=== PATIENT | female | born 1940 | race Caucasian/White ===

== ENCOUNTER → 2018-12-31 | Outpatient (CLI) | payer MEDICARE, OTHER ==
[~2018-12-31] MED LIST: CEPH500 PO; HYDACE5 PO; RALO60 PO
[2018-12-31 20:05] LABS: Campylobacter Sp Not Detected (NOT DETECT); Enteroaggregative E. coli-EAEC Not Detected (NOT DETECT); Enterotoxigenic E. coli-ETEC Not Detected (NOT DETECT); Plesiomonas Shigelloides Not Detected (NOT DETECT); Salmonella Sp Not Detected (NOT DETECT); Vibrio Cholerae Not Detected (NOT DETECT); Vibrio Sp Not Detected (NOT DETECT); Yersinia Enterocolitica Not Detected (NOT DETECT)
[2018-12-31 20:06] LABS: Adenovirus F 40/41 Not Detected (NOT DETECT); Astrovirus Not Detected (NOT DETECT); Cryptosporidium Not Detected (NOT DETECT); Cyclospora Cayetanensis Not Detected (NOT DETECT); E. Coli O157 Not Detected (NOT DETECT); Entamoeba Histolytica Not Detected (NOT DETECT); Enteropathogenic E. coli-EPEC Not Detected (NOT DETECT); Giardia Lamblia Not Detected (NOT DETECT); Norovirus GI/GII Not Detected (NOT DETECT); Rotavirus A Not Detected (NOT DETECT); Sapovirus Not Detected (NOT DETECT); Shiga Toxin-prod E. coli-STEC Not Detected (NOT DETECT); Shigella/Enteroin E. coli-EIEC Not Detected (NOT DETECT)
== END | disposition home or self-care (01) ==
LOC: LAB SHORT 17:30 → LAB 17:30
PROVIDERS: Emergency Medicine
DX: R19.7 Diarrhea, unspecified (principal)
CPT/HCPCS: 0097U

== ENCOUNTER 2019-07-21 19:30 | Emergency (ER) | payer MEDICARE, OTHER ==
[~2019-07-21] VITALS: Ht 154.9 cm; Wt 68.0 kg
[2019-07-21 19:50] LABS: Hematocrit 39.1 % (33.0-51.0); Hemoglobin 12.9 g/dL (11.5-16.0); Mean Corpuscular HGB 31.5 pg (26.0-34.0); Mean Corpuscular Volume 95 fL (80-100); Mean Platelet Volume 9.8 fL (9.1-12.4); Platelet Count 252 K/mm3 (150-400); RDW Coefficient Variation 12.2 % (11.7-14.2); RDW Standard Deviation 42.4 fL (35.1-46.3); White Blood Cell Count 6.86 K/mm3 (4.00-11.30)
[2019-07-21 19:51] LABS: BASOPHILS ABSOLUTE AUTO 0.07 K/mm3 (0.00-0.23); BASOPHILS PERCENT AUTO 1 % (0-2); EOSINOPHILS ABSOLUTE AUTO 0.41 K/mm3 (0.00-0.68); EOSINOPHILS PERCENT AUTO 6 % (0-6); IMMATURE GRAN ABSOLUTE AUTO 0.02 K/mm3 (0.00-0.10); IMMATURE GRAN PERCENT AUTO 0 % (0-1); LYMPHOCYTES ABSOLUTE AUTO 2.47 K/mm3 (0.84-5.20); LYMPHOCYTES PERCENT AUTO 36 % (21-46); MONOCYTES ABSOLUTE AUTO 0.72 K/mm3 (0.16-1.47); MONOCYTES PERCENT AUTO 11 % (4-13); NEUTROPHILS ABSOLUTE AUTO 3.17 K/mm3 (1.96-9.15); NEUTROPHILS PERCENT AUTO 46 % (41-73)
[2019-07-21] MEDS ORDERED: LORCET PLUS 7.1 EACH PO (20:06)
[2019-07-21 20:07] LABS: International Normalized Ratio 1.17; Prothrombin Time Results 12.4 Sec (9.7-11.5)
[2019-07-21] MEDS ORDERED: CYCL10 PO (20:07)
[2019-07-21] MEDS ORDERED: FUROSEMIDE20 MG PO (20:07)
[2019-07-21] MEDS ORDERED: Cymbalta20 MG PO (20:08)
[2019-07-21 20:09] LABS: Alanine Aminotransfer (ALT/SGP 36 U/L (12-78); Albumin/Globulin Ratio 1.1 (0.8-1.8); Alk Phos 53 U/L (50-136); Anion Gap 6 mmol/L (6-16); Aspartate Aminotrans (AST/SGOT 36 U/L (12-37); Bilirubin, Total 0.3 mg/dL (0.1-1.0); Blood Urea Nitrogen 10 mg/dL (8-24); Bun/Creatinine Ratio 15.8 (12.0-20.0); CO2, Blood 25 mmol/L (21-32); Calcium, Blood 8.6 mg/dL (8.5-10.1); Chloride, Blood 102 mmol/L (98-108); Creatinine, Blood 0.63 mg/dL (0.40-1.00); Globulin, Blood 3.5 g/dL (2.2-4.0); Glomerular Filtration Rate >60 (60-); Glucose, Blood 114 mg/dL (70-99); Potassium, Blood 3.7 mmol/L (3.5-5.5); Sodium, Blood 133 mmol/L (136-145); Total Protein, Blood 7.5 g/dL (6.4-8.2)
[2019-07-21] MEDS ORDERED: Advair Hfa 115-12 GM INH (20:09)
[2019-07-21] MEDS ORDERED: LOSA50 PO (20:10)
[2019-07-21] MEDS ORDERED: ESCITALOPRAM OXA5 MG PO (20:11)
[2019-07-21] MEDS ORDERED: ATENOLOL25 MG PO (20:18)
[2019-07-21] MEDS ORDERED: SYNTHROID50 MC1 PO (20:18)
[2019-07-21] MEDS ORDERED: LIVALO2 MG PO (20:19)
[2019-07-21] MEDS ORDERED: RALOXIFENE HCL60 MG PO (20:19)
[2019-07-21] MEDS ORDERED: Paxil20 MG PO (20:20)
[2019-07-21] MEDS ORDERED: AMLODIPINE BESYL5 MG PO (20:21)
== END 2019-07-21 21:10 | disposition short-term general hospital (02) ==
LOC: ER 19:30
PROVIDERS: Emergency Medicine
DX: I61.9 Nontraumatic intracerebral hemorrhage, unspecified (principal); I10 Essential (primary) hypertension; E78.5 Hyperlipidemia, unspecified; Z88.2 Allergy status to sulfonamides; Z79.899 Other long term (current) drug therapy
CPT/HCPCS: 70450; 80053; 82947; 85025; 85610; 85730; 93005; 93010; 96365; 96368; 99285-25; J7050

== ENCOUNTER → 2019-09-19 | Outpatient (CLI) | payer MEDICARE, OTHER ==
[~2019-09-19] MED LIST changes: +AMLODIPINE BESYL5 MG PO; +ATENOLOL25 MG PO; +Advair Hfa 115-12 GM INH; +CYCL10 PO; +Cymbalta20 MG PO; +ESCITALOPRAM OXA5 MG PO; +FUROSEMIDE20 MG PO; +LIVALO2 MG PO; +LORCET PLUS 7.1 EACH PO; +LOSA50 PO; +Paxil20 MG PO; +RALOXIFENE HCL60 MG PO; +SYNTHROID50 MC1 PO
== END | disposition home or self-care (01) ==
LOC: LAB SHORT 16:32 → LAB 16:32
DX: R30.0 Dysuria (principal)
CPT/HCPCS: 87077; 87086; 87186

== ENCOUNTER → 2019-12-24 | Outpatient (CLI) | payer MEDICARE, OTHER ==
[2019-12-24 15:10] LABS: Osmolality, Urine 272 mos/kg (15-1400)
[2019-12-24 15:27] LABS: Sodium, Urine, Random 29 mmol/L (20-110)
== END | disposition home or self-care (01) ==
LOC: LAB 10:00 → LAB SHORT 10:00 → LAB FUT 12-22 08:40
PROVIDERS: Internal Medicine
DX: E87.1 Hypo-osmolality and hyponatremia (principal); E03.9 Hypothyroidism, unspecified; I10 Essential (primary) hypertension
CPT/HCPCS: 83935; 84300

== ENCOUNTER 2021-10-17 10:04 | Emergency (ER) | payer OTHER, MEDICARE ==
[~2021-10-17] VITALS: Ht 157.5 cm; Wt 56.2 kg
[2021-10-17] MEDS ORDERED: Norco 5-325 Ta1 EACH PO (11:20)
[2021-10-19] MEDS ORDERED: METO25ER PO (14:14)
== END 2021-10-17 11:36 | disposition home or self-care (01) ==
LOC: ER 10:04
DX: S52.531A Colles' fracture of right radius, initial encounter for closed fracture (principal); I10 Essential (primary) hypertension; W01.0XXA Fall on same level from slipping, tripping and stumbling without subsequent striking against object, initial encounter; Y93.K1 Activity, walking an animal; Z88.2 Allergy status to sulfonamides; Z79.899 Other long term (current) drug therapy; Z87.891 Personal history of nicotine dependence
CPT/HCPCS: 73110; A9270

== ENCOUNTER 2021-10-17 18:51 | Emergency (ER) | payer MEDICARE, OTHER ==
[~2021-10-17] VITALS: Ht 157.5 cm; Wt 56.2 kg
[~2021-10-17 18:51] MED LIST changes: +Norco 5-325 Ta1 EACH PO
[2021-10-19] MEDS ORDERED: METO25ER PO (14:14)
== END 2021-10-17 20:58 | disposition home or self-care (01) ==
LOC: ER 18:51
DX: R55 Syncope and collapse (principal); S42.301A Unspecified fracture of shaft of humerus, right arm, initial encounter for closed fracture; I10 Essential (primary) hypertension; E78.5 Hyperlipidemia, unspecified; E03.9 Hypothyroidism, unspecified; Z86.73 Personal history of transient ischemic attack (TIA), and cerebral infarction without residual deficits; Z88.2 Allergy status to sulfonamides; Z79.899 Other long term (current) drug therapy; X58.XXXA Exposure to other specified factors, initial encounter
CPT/HCPCS: 99283

== ENCOUNTER 2021-10-24 11:03 | Day surgery (SDC) | payer OTHER, MEDICARE ==
[~2021-10-24] VITALS: Ht 152.4 cm; Wt 55.0 kg
[~2021-10-24 11:03] MED LIST changes: +METO25ER PO
--- NOTE | 2021-10-24 11:56 | NUR ---
Ambulatory in Day Surgery. History, Chart, Medications and Allergies reviewed before start of procedure. Patient States Post-Procedure ride home has been arranged WITH NEIGHBOR MAYRA.
--- NOTE | 2021-10-24 14:55 | NUR ---
PT HERE AT 1443 WARE[address]SE SORTERROMINA GRANT STATES PT BECAME MORE CONFUSED A DOSE OF FENTANYL PT IS NOW IN STEP AND IS UNSURE OF WHAT WAS DONE BUT IS TAKING PO FLUIDS WELL, PT CANNOT DESCRIBE PAIN SCALE AT THIS TIME BUT APPEARS COMFOTABLE REPORT TO Kristin STOUT RN
--- NOTE | 2021-10-24 14:58 | NUR ---
TOOK OVER PATIENT CARE AFTER REPORT WAS RECEIVED.
--- NOTE | 2021-10-24 16:38 | NUR ---
THE PATIENT WAS DISCHARGED HOME WITH HER NEIGHBOR, AFTER DISCHARGE INSTRUCTIONS WERE GIVEN TO THE PATIENT. Patient up to Ambulate independently. Gait steady. Romelia Paws warming gown applied. Discharge instructions reviewed with patient. Patient verbalizes understanding. Copy given to patient to take home. Patient States Post-Procedure ride home has been arranged. Discharged via wheelchair to private car for ride home.
== END 2021-10-24 16:41 | disposition home or self-care (01) ==
LOC: ORSCMMR 11:03
PROVIDERS: Orthopaedic Surgery
PROC: 0PSH04Z Reposition Right Radius with Internal Fixation Device, Open Approach (ICD-10-PCS; principal; 2021-10-24 12:30)
DX: S52.501A Unspecified fracture of the lower end of right radius, initial encounter for closed fracture (principal); W01.0XXA Fall on same level from slipping, tripping and stumbling without subsequent striking against object, initial encounter; I10 Essential (primary) hypertension; E03.9 Hypothyroidism, unspecified; F41.9 Anxiety disorder, unspecified; Z86.73 Personal history of transient ischemic attack (TIA), and cerebral infarction without residual deficits; I25.10 Atherosclerotic heart disease of native coronary artery without angina pectoris; I63.9 Cerebral infarction, unspecified; Z87.891 Personal history of nicotine dependence; Z79.899 Other long term (current) drug therapy
CPT/HCPCS: A9270; C1713; J0690; J1100; J2250; J2405; J2704; J3010; J7120

== ENCOUNTER → 2023-02-05 | Outpatient (CLI) | payer MEDICARE, OTHER | LOC: LAB 09:06 → LAB SHORT 09:06 | DX: R30.0 Dysuria (principal) | CPT/HCPCS: 87086 ==

== ENCOUNTER → 2023-11-10 | Outpatient (CLI) | payer MEDICARE, OTHER | LOC: LAB 13:19 → LAB SHORT 13:19 | DX: R30.0 Dysuria (principal); R35.0 Frequency of micturition | CPT/HCPCS: 87086 ==

== ENCOUNTER 2024-08-03 16:36 | Inpatient (IN) | payer MEDICARE, OTHER ==
[~2024-08-03] VITALS: Ht 157.5 cm; Wt 49.1 kg
[~2024-08-03 16:36] MED LIST changes: -METO25ER PO; +METO50ER PO
[2024-08-03] MEDS ORDERED: Diltiazem HCl 5 MG / ML 5ML Vial IV ONE ×3 (16:55→19:15)
[2024-08-03 17:13] LABS: BASOPHILS ABSOLUTE AUTO 0.06 K/mm3 (0.00-0.23); BASOPHILS PERCENT AUTO 1 % (0-2); EOSINOPHILS ABSOLUTE AUTO 0.29 K/mm3 (0.00-0.68); EOSINOPHILS PERCENT AUTO 3 % (0-6); Hematocrit 33.5 % (33.0-51.0); Hemoglobin 11.2 g/dL (11.5-16.0); IMMATURE GRAN ABSOLUTE AUTO 0.02 K/mm3 (0.00-0.10); IMMATURE GRAN PERCENT AUTO 0 % (0-1); LYMPHOCYTES ABSOLUTE AUTO 1.39 K/mm3 (0.84-5.20); LYMPHOCYTES PERCENT AUTO 16 % (21-46); MONOCYTES PERCENT AUTO 9 % (4-13); Mean Corpuscular HGB 31.8 pg (26.0-34.0); Mean Corpuscular HGB Conc 33.4 g/dL (31.5-36.5); Mean Corpuscular Volume 95 fL (80-100); Mean Platelet Volume 9.9 fL (9.1-12.4); NEUTROPHILS ABSOLUTE AUTO 6.27 K/mm3 (1.96-9.15); NEUTROPHILS PERCENT AUTO 71 % (41-73); Platelet Count 300 K/mm3 (150-400); RDW Coefficient Variation 12.5 % (11.7-14.2); RDW Standard Deviation 43.7 fL (35.1-46.3); Red Blood Cell Count 3.52 M/mm3 (3.80-5.20); White Blood Cell Count 8.83 K/mm3 (4.00-11.30)
[2024-08-03 17:27] LABS: Albumin, Blood 3.8 g/dL (3.4-5.0); Albumin/Globulin Ratio 1.1 (0.8-1.8); Bilirubin, Total 0.5 mg/dL (0.1-1.0); Bun/Creatinine Ratio 39.8 (12.0-20.0); Calcium, Blood 9.2 mg/dL (8.5-10.1); Creatinine, Blood 0.5 mg/dL (0.40-1.00); Globulin, Blood 3.5 g/dL (2.2-4.0); Potassium, Blood 4.1 mmol/L (3.5-5.5); Total Protein, Blood 7.3 g/dL (6.4-8.2)
[2024-08-03] MEDS ORDERED: dilTIAZem HCL 125 MG in Dextrose 5% 100 ML IV SCH (19:15)
[2024-08-03 19:41] LABS: Source, Urine Clean Catch
[2024-08-03 19:45] LABS: Appearance, Urine Hazy (Clear); Bilirubin, Urine Neg (Neg); Blood, Urine 1+ (Neg); Color, Urine Yellow (P-Yellow); Glucose Qualitative, Urine Neg (Neg); Ketones, Urine 1+ (Neg); Leukocyte Esterase, Urine 3+ (Neg); Nitrite, Urine Pos (Neg); Protein, Urine 3+ (Neg); Specific Gravity, Urine 1.015 (1.003-1.022); Urobilinogen, Urine NORM (Normal)
[2024-08-03] MEDS ORDERED: OxyCODONE HCL 5 MG TAB PO PRN (19:50)
[2024-08-03] MEDS ORDERED: Acetaminophen 325 MG TABLET PO PRN (19:50)
[2024-08-03] MEDS ORDERED: Ondansetron HCl 2 MG / ML 2ML Vial IV PRN (19:50)
[2024-08-03] MEDS ORDERED: Sennosides 8.6 MG Tab PO PRN (19:50)
[2024-08-03 20:00] LABS: Bacteria Many /hpf; Squamous Epithelial Cells Mod /hpf (Few); White Blood Cells, Urine 25-50 /hpf (0-5)
[2024-08-03 20:01] LABS: Hyaline Casts 0-2 /lpf (0-2)
[2024-08-03 20:43] LABS: CHOL/HDL RATIO 1.9; Cholesterol 158 mg/dL (50-200); HDL Cholesterol 84 mg/dL (>39); LDL/HDL RATIO 0.7; Low Density Lipoprotein Chol 56 mg/dL (0-110); Triglycerides 91 mg/dL (30-160); Very Low Density Lipoprot Chol 18 mg/dL (6-32)
[2024-08-03 21:15] VITALS: BP 93/71
[2024-08-03 22:45] VITALS: BP 138/87
[2024-08-03 22:57] LABS: Anti-Xa UFH, PHA Monitoring <0.10 IU/mL; International Normalized Ratio 1.12; Prothrombin Time Results 11.9 Sec (9.7-11.5)
[2024-08-03 23:00] VITALS: BP 135/72
[2024-08-03] MEDS ORDERED: Dose Adjust by Pharmacy XX STA (23:04)
[2024-08-03] MEDS ORDERED: Heparin Sodium,Porcine/0.5 NS 500 ML IV SCH (23:05)
[2024-08-03] MEDS ORDERED: Heparin Sodium 5000 Units/ML 1ML MDV IV ONE (23:05)
[2024-08-03 23:15] VITALS: BP 115/77
[2024-08-03 23:30] VITALS: BP 130/79
[2024-08-04] MEDS ORDERED: Insulin Regular 100 UNIT/ML 10ML Vial SC SCH
[2024-08-04 04:42] VITALS: BP 117/64
[2024-08-04 06:13] LABS: BASOPHILS ABSOLUTE AUTO 0.06 K/mm3 (0.00-0.23); BASOPHILS PERCENT AUTO 1 % (0-2); EOSINOPHILS ABSOLUTE AUTO 0.32 K/mm3 (0.00-0.68); EOSINOPHILS PERCENT AUTO 4 % (0-6); Hematocrit 32.7 % (33.0-51.0); IMMATURE GRAN ABSOLUTE AUTO 0.03 K/mm3 (0.00-0.10); IMMATURE GRAN PERCENT AUTO 0 % (0-1); LYMPHOCYTES ABSOLUTE AUTO 1.42 K/mm3 (0.84-5.20); LYMPHOCYTES PERCENT AUTO 16 % (21-46); MONOCYTES ABSOLUTE AUTO 0.83 K/mm3 (0.16-1.47); MONOCYTES PERCENT AUTO 10 % (4-13); Mean Corpuscular HGB Conc 33.6 g/dL (31.5-36.5); Mean Corpuscular Volume 95 fL (80-100); Mean Platelet Volume 10.1 fL (9.1-12.4); NEUTROPHILS PERCENT AUTO 69 % (41-73); Platelet Count 304 K/mm3 (150-400); RDW Coefficient Variation 12.4 % (11.7-14.2); RDW Standard Deviation 43.3 fL (35.1-46.3); Red Blood Cell Count 3.44 M/mm3 (3.80-5.20); White Blood Cell Count 8.66 K/mm3 (4.00-11.30)
[2024-08-04] MEDS ORDERED: Clarify Drug Order XX ONE (06:40)
[2024-08-04 06:49] LABS: Albumin, Blood 3.3 g/dL (3.4-5.0); Bilirubin, Total 0.6 mg/dL (0.1-1.0); Bun/Creatinine Ratio 28.1 (12.0-20.0); Calcium, Blood 8.6 mg/dL (8.5-10.1); Creatinine, Blood 0.46 mg/dL (0.40-1.00); Globulin, Blood 3.4 g/dL (2.2-4.0); Potassium, Blood 3.9 mmol/L (3.5-5.5); Total Protein, Blood 6.7 g/dL (6.4-8.2)
--- NOTE | 2024-08-04 07:23 | NUR ---
PT MONITORED DURING THE SHIFT.CONTINUES ON DILTAZEM DRIP,TITRATED PER PROTOCOL.INFUSING AT 5MG/KG/HR.AFIB ON THE MONITOR,RATE CONTROLLED ,HR >110.ON HEPARIN DRIP AT 15.6ML/HR.PT NOT ABLE TO URINATE ON HER OWN,TRANSFERRED TO BEDSIDE COMMODE BUT HAD <30ML OF URINE.STRAIGHT CATHED PER PROTOCOL FOR BLADDER SCAN VOLUME OF 561ML.PT ALERT AND AWAKE THIS MORNING.DENIES PAIN,DENIES NEEDS.CALL LIGHT AND PT'S ITEMS WITHIN REACH.REPORT GIVEN TO DAYSHIFT NURSE FOR CONTINUITY OF CARE.
[2024-08-04 07:49] VITALS: BP 129/60
[2024-08-04] MEDS ORDERED: Metoprolol Succinate 25 MG TABCR PO SCH ×2 (09:07→21:00)
[2024-08-04 11:48] VITALS: BP 110/69
[2024-08-04] MEDS ORDERED: Enoxaparin 60 MG/0.6 ML SYR SC SCH (12:00)
[2024-08-04 15:41] VITALS: BP 109/68
--- NOTE | 2024-08-04 17:05 | NUR ---
PT A&Ox4 ON RA. SHE WAS ON HEP GTT AND DILT GTT THIS MORNING WHEN I ASSUMED CARE, SHE IS NOW OFF BOTH GTTS. SHE HAS AMBULATED TO THE RESTROOM x1 ASSIST. SHE IS ON A REGULAR DIET. SHE HAD AN ECHO AND A SHOULDER X-RAY DONE TODAY WELL.
--- NOTE | 2024-08-04 18:35 | NUR ---
ATTEMPTED TO CALL DR, PT HR >135
[2024-08-04 19:05] VITALS: BP 123/78
[2024-08-04 20:14] VITALS: BP 106/77
[2024-08-05] VITALS (7 sets, daily range): BP systolic 95–148; BP diastolic 58–92
[2024-08-05 04:45] LABS: Albumin, Blood 3.1 g/dL (3.4-5.0); Albumin/Globulin Ratio 0.9 (0.8-1.8); Bilirubin, Total 0.4 mg/dL (0.1-1.0); Bun/Creatinine Ratio 20.3 (12.0-20.0); Calcium, Blood 8.6 mg/dL (8.5-10.1); Creatinine, Blood 0.59 mg/dL (0.40-1.00); Globulin, Blood 3.6 g/dL (2.2-4.0); Potassium, Blood 3.9 mmol/L (3.5-5.5); Total Protein, Blood 6.7 g/dL (6.4-8.2)
--- NOTE | 2024-08-05 05:27 | NUR ---
SHIFT SUMMARY PT IS A&O X4, CONFUSED AT TIMES/NOT USING CALL LIGHT FOR ASSISTANCE-GETTING OUT OF BED/BED ALARM ACTIVE, OBEYS COMMANDS, PT MOVING ALL EXTREMITIES WITH PURPOSE, ABLE TO MAKE NEEDS KNOWN, HOLDING APPROPRIATE CONVERSATION, PT IS 1 PERSON ASSIST TO BRP WITH FWW. CONTINUOUS SPO2, SPO2 GREATER 90% ON RA, NO SIGNS OF RESPIRATORY DISTRESS NOTED, PT STARTED TO HAVE APNIC EPISODES WHILE SLEEPING STARTING @ APPROX 0450 DROPPING TO 70-60% BUT RECOVERING ON HER OWN QUICKLY. CONTINUOUS TELE MONITORING, AFIB RHYTHM 100-110 S/OCCATIOANLLY TOUCHING 120-130 S WITH ACTIVITY BUT NOT SUSTAINING/ CONVERTED TO SINUS RHYTHM 80 S @ APPROX 0213 05/07, BP STABLE WITH MAP GREATER THAN 65, PT DENIES CHEST P/P T/O THIS SHIFT, PULSES PRESENT T/O, CAP REFILL WNL. BOWEL TONES PRESENT IN ALL 4Q, PT DENIES FEELINGS OF NAUSEA OR CONSTIPATION. PT STATES SHE FEELS LIKE SHE HAS TO VOID FREQUENTLY/ SMALL AMOUNT OF OUTPUT EACH TIME AND SMALL ABOUT OF URINARY INCONTINUMENTS. BED LOWEST POSITION, CALL LIGHT IN REACH, AWAITING TO GIVE REPORT TO ONCOMING RN.
[2024-08-05] MEDS ORDERED: Levothyroxine Sodium 0.075 MG Tab PO SCH (06:00)
[2024-08-05] MEDS ORDERED: Metoprolol Succinate 50 MG TABCR PO SCH (09:00)
[2024-08-05] MEDS ORDERED: Apixaban 5 MG Tab PO SCH (09:00)
--- NOTE | 2024-08-05 16:52 | NUR ---
PT A&Ox4 BUT FORGETFUL. SHE IS ABLE TO MAKE HER NEEDS KNOWN. TODAY SHE HAS HAD MOMENTS OF AGITATION. SHE IS ON RA AND IS x1 ASSIST W/FWW. BED/CHAIR ALARM ON D/T HER BEING A HIGH FALL RISK AND SHE CONTINUES TO SET IT OFF AFTER BEING REMINDED TO CALL FOR HELP. SHE IS CURRENTLY SITTING UP IN CHAIR WATCHING TV. NO NEEDS NOTED @ THIS TIME.
[2024-08-05] MEDS ORDERED: QUEtiapine Fumarate 25 MG Tab PO ONE (19:45)
[2024-08-06 00:20] VITALS: BP 158/76
[2024-08-06 03:59] VITALS: BP 156/92
--- NOTE | 2024-08-06 04:44 | NUR ---
SHIFT SUMMARY. SHIFT HAS BEEN UNREMARKABLE. PT HAS BEEN ABLE TO REST COMFORTABLY THROUGHOUT MOST OF SHIFT. ABLE TO ANSWER ORIENTATION QUESTIONS APPROPRIATELY AT SHIFT ONSET ALTHOUGH MENTATION HAS FLUCTUATED OVER THE NIGHT. AT TIMES IMPULSIVE, BED ALARM ACTIVE FOR SAFETY. CONTINUES TO RUN SINUS ON TELE. DENIES PAIN. VITALS STABLE. SPOKE WITH HOSPITALIST CHARAN EARLY IN SHIFT TO REQUEST SLEEP AID PT WAS UNABLE TO REST THROUGHOUT PREVIOUS NOC SHIFT. PT HAS BEEN ABLE TO REST COMFORTABLY THROUGHOUT SHIFT AFTER RECEIVING 25 MG SEROQUEL PO OT. SHIFT OTHERWISE UNREMARKABLE. BED LOCKED IN LOWEST POSITION. CALL LIGHT LEFT WITHIN REACH. CONTINUING TO MONITOR.
[2024-08-06 07:57] VITALS: BP 154/81
[2024-08-06] MEDS ORDERED: Losartan Potassium 50 MG Tab PO SCH (09:00)
[2024-08-06 11:20] VITALS: BP 134/60
--- NOTE | 2024-08-06 14:40 | NUR ---
TRANSFER NOTE CALLED REPORT TO ROMINA RAMIREZ AND THEN TRANSFERRED PT VIA WC TO [id number] WITH HER PERSONAL BELONGINGS. PT A&Ox4 AND ABLE TO MAKE NEEDS KNOWN. SHE IS ON RA AND IS A 1 PERSON ASSIST W/FWW.
--- NOTE | 2024-08-06 14:45 | NUR ---
PT TRANSFERED FROM [facility].
[2024-08-06 15:24] VITALS: BP 122/75
--- NOTE | 2024-08-06 17:45 | NUR ---
SHIFT SUMMARY PT IS A/OX3-4, FORGETFUL AT TIMES. PT IS ON RA, SATS >95%. 1 PERSON ASSIST WITH FWW. PT IS CURRENTLY SITTING UP IN THE CHAIR WITH THE CALL LIGHT IN REACH.
[2024-08-06 19:22] VITALS: BP 117/54
[2024-08-07 02:17] VITALS: BP 147/78
--- NOTE | 2024-08-07 05:11 | NUR ---
SHIFT SUMMARY NOC PT A/O X 3-4. VENETIE IRA, AND FORGETFUL AT TIMES. VSS. NO ACUTE CHANGES TO REPORT. AT BEDTIME PT REQUESTED TYLENOL FOR HEADACHE AND MEDICATED PER EMAR. PT EXPECTED TO DISCHARGE TODAY WITH HOME HEALTH. PT CURRENTLY RESTING WITH BED IN LOWEST POSITION, AND CALL LIGHT WITHIN REACH.
[2024-08-07 07:56] VITALS: BP 128/87
[2024-08-07 12:33] VITALS: BP 113/65
--- NOTE | 2024-08-07 14:04 | NUR ---
1355- THIS RN NOTIFIED MD PETERSEN THAT PT HAD COVERTED INTO AFIB AT 1258 IN THE 120'S. PT SINCE HAS INCREASED IN HR UP TO THE 150'S IN THE PAST 10-15 MINUTES. RN ASKED IF MD WANTED 5MG METOPROLOL IV PUSH NOW. MD SAID HE WILL PUT IN ANY ORDERS. CAME TO RN AND LOOKED AT TELEMETRY.
[2024-08-07] MEDS ORDERED: Metoprolol Tartrate 1 MG/ML 5 ML VIAL IV STA (14:10)
--- NOTE | 2024-08-07 16:52 | NUR ---
1649- THIS RN NOTIFIED MD PETERSEN THAT PT'S HR WAS ELEVATED AGAIN UP TO 140-150'S. SAID HE WILL PUT IN CARDIZEM 10MG IV PUSH NOW.
[2024-08-07 16:58] VITALS: BP 116/93
[2024-08-07] MEDS ORDERED: Diltiazem HCl 5 MG / ML 5ML Vial IV ONE (17:00)
--- NOTE | 2024-08-07 17:55 | NUR ---
SUMMARY- AAOX4. FORGETFUL. X1 5MG IV METOPROLOL GIVEN THIS SHIFT. CONTROLLED HR FOR A SHORT AMOUNT OF TIME. X1 10MG CARDIZEM IV PUSH GIVEN TONIGHT WHEN PT'S HR WAS 150'S. PT'S HR WAS DECREASED TO 100'S POST PUSH. PT HAS BEEN ASYMPTOMATIC THROUGHOUT THIS SHIFT. X1 TO THE BATHROOM WITH WALKER/GAIT BELT. PT IS ON RA. WHEN THIS RN ASSUMED CARE FOR PT THIS AM, PT WAS NOT ON TELEMETRY. RN WAS GIVEN REPORT THAT PT WAS TRANSFERRED FROM PCU WITH NO TELE ORDER. MD PETERSEN WAS CONTACTED AT 1045 AND ASKED IF HE WANTED PT ON TELE. TELE ORDER WAS PLACED. PT WENT ON TELE AT 1110. PT WAS IN NSR AT 73. PT CONVERTED TO AFIB AT 1258. AFIB RVR AT 1400. NO OTHER ACUTE EVENTS THIS SHIFT. PT HAD MILD NECK PAIN THAT WAS RELIEVED BY TYLENOL.
[2024-08-07 20:09] VITALS: BP 112/78
[2024-08-07] MEDS ORDERED: Metoprolol Succinate 50 MG TABCR PO SCH (21:00)
--- NOTE | 2024-08-07 23:28 | NUR ---
THIS NURSE NOTITFIED BY SUPERINTENDENT INSTITUTION THAT PT CONVERTED TO NSR 60'S. ELEVATED BPOF 147/115 AT MIDNIGHT VS. RECHECK AT 0100: 147/78. ASYMPTOMATIC. ATTEMPTED X3 TO CALL TEST CASE DEVELOPER RESIDENT, UNABLE TO REACH. CHARGE NURSE NOTIFIED. CONTIUED MONITORING / ROUNDING IN PLACE.
[2024-08-08 00:26] VITALS: BP 144/115
[2024-08-08 01:00] VITALS: BP 147/78
--- NOTE | 2024-08-08 04:38 | NUR ---
AQUATIC HABITAT BIOLOGIST SUMMARY: PT ADMITTED FOR NEW ONSET AFIB RVR. A&O X4, FORGETFUL. SEE PREVIOUS NURSING NOTE REGARDING ELEVATED BP; ASYMPTOMATIC. PT CONVERTED FROM AFIB TO NSR AT APPROX 2323. MEDICATED X1 AT BEGINNING OF SHIFT FOR HEADACHE PER EMAR ORDERS; EFFECTIVE. BED IN LOWEST POSITION. BED ALARM IN PLACE. CALL LIGHT IN REACH. PT INDEPENDENT WITH BED MOBILITY. CARES ONGOING ORDERED. PT REC SNF, PT WANTING HHS UPON D/C.
[2024-08-08 05:34] VITALS: BP 146/84
[2024-08-08 07:47] VITALS: BP 142/67
[2024-08-08] MEDS ORDERED: ELIQUIS2.5 MG PO (11:59)
--- NOTE | 2024-08-08 13:43 | NUR ---
DISCHARGE SUMMARY PATIENT DISCHARGED HOME THIS SHIFT WITH HOME HEALTH TO FOLLOW, FRIEND KALYANI TO DRIVE. IV'S REMOVED WITHOUT COMPLICATION. DISCHARGE PACKET GIVEN AND REVIEWED, QUESTIONS ANSWERED, AND CLARIFICATIONS HAND WRITTEN IN FOR MED INSTRUCTIONS. VERBALIZED UNDERSTANDING.
== END 2024-08-08 12:50 | disposition home health service (06) | DRG 309 ==
LOC: ER 16:36 → ERHOLD 16:37 → PCU 16:37 → MEDS 08-06 15:02
PROVIDERS: Emergency Medicine; Student in an Organized Health Care Education/Training Program; ADMIT Family Medicine
DX: I48.91 Unspecified atrial fibrillation (principal); E87.1 Hypo-osmolality and hyponatremia; I10 Essential (primary) hypertension; E03.9 Hypothyroidism, unspecified; R73.03 Prediabetes; Z66 Do not resuscitate; Z88.1 Allergy status to other antibiotic agents; Z79.899 Other long term (current) drug therapy; Z79.890 Hormone replacement therapy; Z87.891 Personal history of nicotine dependence; Z88.2 Allergy status to sulfonamides
CPT/HCPCS: 36415; 51701; 71045; 73030; 80053; 80061; 81001; 82947; 83036; 83735; 83880; 84443; 84484; 85025; 85379; 85520; 85610; 87086; 93005; 93010; 93306; 96365; 96366; 96376; 97110; 97110-CQ; 97112; 97116; 97116-CQ; 97161; 97165; 97530; 97535; 99285-25; A9270; G0378; J1644; J1650

== ENCOUNTER 2024-09-30 07:57 | Inpatient (IN) | payer MEDICARE, OTHER ==
[~2024-09-30] VITALS: Ht 190.5 cm; Wt 55.1 kg
[~2024-09-30 07:57] MED LIST changes: +ELIQUIS2.5 MG PO
[2024-09-30] MEDS ORDERED: FentaNYL Citrate 50 MCG/ML 2 ML Injection IV PRN (09:25)
[2024-09-30] MEDS ORDERED: Human Prothrombin Complx(Pcc) 2,000 UNIT in Water For Injection,Sterile 80 ML IV ONE (11:50)
[2024-09-30] MEDS ORDERED: HYDROcodone 5-APAP 325 TAB PO ONE (14:20)
[2024-09-30] MEDS ORDERED: HYDROmorphone HCl/Pf 1MG SYR IV ONE (15:45)
[2024-09-30] MEDS ORDERED: HYDROmorphone HCl/Pf 1MG SYR IV PRN (16:25)
[2024-09-30 20:15] VITALS: BP 171/85
[2024-10-01 00:46] VITALS: BP 143/73
[2024-10-01 03:51] VITALS: BP 160/78
--- NOTE | 2024-10-01 05:43 | NUR ---
ADMISSION AND SHIFT SUMMARY ASSUMED CARE AT 2009. HANDOFF REPORT RECEIVED FROM ZORAIDA. PT A&Ox4 HOWEVER DOES NOT ANSWER ALL QUESTIONS ABOUT HISTORY, NEEDS, CONCERNS. FLACC AND FACE SCALES USED FOR PAIN ASSESSMENTS. PRN MEDS GIVEN FOR BILATERAL HIP PAIN WITH TURNS AND R ARM PAIN. DESAT TO 88% WHEN ASLEEP, 0.5 LPM BY NC TO MAINTAIN >90%. CONTINUOUS PULSE OX IN USE. CALL LIGHT IN REACH, SAFTEY PRECAUTIONS IN PLACE.
[2024-10-01 06:16] LABS: BASOPHILS ABSOLUTE AUTO 0.06 K/mm3 (0.00-0.23); BASOPHILS PERCENT AUTO 1 % (0-2); EOSINOPHILS ABSOLUTE AUTO 0.27 K/mm3 (0.00-0.68); EOSINOPHILS PERCENT AUTO 3 % (0-6); Hematocrit 34.0 % (33.0-51.0); Hemoglobin 10.9 g/dL (11.5-16.0); IMMATURE GRAN ABSOLUTE AUTO 0.02 K/mm3 (0.00-0.10); IMMATURE GRAN PERCENT AUTO 0 % (0-1); LYMPHOCYTES ABSOLUTE AUTO 1.14 K/mm3 (0.84-5.20); LYMPHOCYTES PERCENT AUTO 13 % (21-46); MONOCYTES ABSOLUTE AUTO 0.90 K/mm3 (0.16-1.47); MONOCYTES PERCENT AUTO 10 % (4-13); Mean Corpuscular HGB Conc 32.1 g/dL (31.5-36.5); Mean Corpuscular Volume 96 fL (80-100); NEUTROPHILS ABSOLUTE AUTO 6.66 K/mm3 (1.96-9.15); NEUTROPHILS PERCENT AUTO 74 % (41-73); NRBC ABSOLUTE 0.00 K/mm3 (0.00-0.02); NRBC Auto 0.0 /100 WBC (0.0-0.2); Platelet Count 230 K/mm3 (150-400); RDW Coefficient Variation 13.7 % (11.7-14.2); RDW Standard Deviation 49.0 fL (35.1-46.3)
[2024-10-01 07:02] LABS: Anion Gap 8.0 mmol/L (3-11); Blood Urea Nitrogen 18.0 mg/dL (8-24); CO2, Blood 27.0 mmol/L (21-32); Calcium, Blood 8.2 mg/dL (8.5-10.1); Chloride, Blood 100.0 mmol/L (98-108); Creatinine, Blood 0.71 mg/dL (0.40-1.00); Glucose, Blood 118.0 mg/dL (70-99); Potassium, Blood 4.5 mmol/L (3.5-5.5); Sodium, Blood 130.0 mmol/L (136-145)
[2024-10-01] MEDS ORDERED: HYDROmorphone HCl/Pf 1MG SYR IV PRN (07:25)
[2024-10-01 08:29] VITALS: BP 155/96
--- NOTE | 2024-10-01 09:41 | NUR ---
THIS RN ATTEMPT TO GIVE PT MORNING MEDICATIONS, PT REFUSING AT THIS TIME AND WHEN ASKED WHY STATES "I DON'T KNOW, THERE'S SOMETHING ABOUT THIS PLACE THAT I DON'T TRUST". WHEN ASKED IF THE PT KNOWS WHERE SHE IS AT, ABLE TO RELAY THAT SHE IS AT [facility] IN [place], [place]. PT HAS NO OTHER NEEDS AT THIS TIME. CAREGIVER/FRIEND AT BEDSIDE.
[2024-10-01 11:14] VITALS: BP 145/73
[2024-10-01 15:44] VITALS: BP 152/89
--- NOTE | 2024-10-01 17:30 | NUR ---
SHIFT SUMMARY PT IS A/OX3-4. SLOW TO RESPOND AND LIMITED TO RESPONSES WHEN ASKED QUESTIONS REGARDING NEEDS OR CONCERNS WITH A FLAT AFFECT. ATTEMPT TO WORK WITH PHYSICAL THERAPY THIS MORNING. THIS RN AND PHYSICAL THERAPYAT BEDSIDE, RESISTANT WITH ATTEMPTS TO STAND. PURWICK IN PLACE DRAINING CALLI COLORED URINE. ON TELE RUNNING NORMAL SINUS RYTHYM IN THE 60'S. CONT PULSE OX IN PLACE, PT SATTING >90% WITH OCCASIONAL DESATS IN THE MID-80'S WITH A QUICK RETURN BACK TO IN THE 90'S. PT DECLINING PLACEMENT ON SUPPLEMENTAL O2. PALLIATIVE CARE CONSULTED. PT VISITED BY [facility] CAREGIVERS THIS AFTERNOON. FRIEND/CAREGIVER AT BEDSIDE INTERMITTENTLY THIS SHIFT.
[2024-10-01 19:20] VITALS: BP 127/72
[2024-10-02] VITALS (21 sets, daily range): BP systolic 82–158; BP diastolic 54–108
[2024-10-02] MEDS ORDERED: Metoprolol Tartrate 1 MG/ML 5 ML VIAL IV ONE (03:05)
[2024-10-02] MEDS ORDERED: Metoprolol Tartrate 1 MG/ML 5 ML VIAL IV SCH (03:45)
[2024-10-02] MEDS ORDERED: Diltiazem HCl 5 MG / ML 5ML Vial IV ONE (04:40)
--- NOTE | 2024-10-02 05:13 | NUR ---
SHIFT SUMMARY PT A&Ox3 AT START OF SHIFT BUT HAD SOME CONFUSION DURING THE NIGHT. SEVERAL TIMES THE PT THOUGHT SHE WAS NOT IN BED, ON THE FLOOR, OR FALLING OUT OF BED. PT WAS ABLE TO BE REORIENTED. PT ALSO MORE ALERT AND INTERACTIVE WITH STAFF. MEDICATED PER EMAR FOR PAIN WITH GOOD EFFECT. PT CONVERTED TO A-FIB AT 0149 AND WAS SUSTAINING IN THE 120's-130's. DR TELLO CALLED AND ORDER GIVEN FOR 3 DOSES OF 5mg OF LOPRESSOR WITH NO EFFECT. BLOOD PRESSURE STABLE AND PT ASYMPTOMATIC. ORDER GIVEN TO TRANSFER PT TO PCU. REPORT GIVEN TO RECIEVING NURSE. PT AND BELONGINGS TAKEN TO PCU 2 AROUND 0500.
[2024-10-02 05:24] LABS: Hematocrit 33.7 % (33.0-51.0); Hemoglobin 11.2 g/dL (11.5-16.0)
--- NOTE | 2024-10-02 05:48 | NUR ---
SHIFT SUMMARY PT TRANSFERRED FROM MEDICAL TO [facility] @ 0500 TODAY D/T AFIB RVR. PT ARRIVED A&OX4. NO CHEST PAIN OR SOB STATED. PT WAS GIVEN LOADING DOSE OF DILTIAZEM WITH DILTIAZEM GTT RUNNING AT 10MG/HR WILL TITRATE ACCORDINGLY. NO FURTHER QUESTIONS OR CONCERNS AT THIS TIME. WILL CONTINUE WITH PLAN OF CARE.
[2024-10-02 05:50] LABS: Anion Gap 8.0 mmol/L (3-11); Blood Urea Nitrogen 18.0 mg/dL (8-24); CO2, Blood 26.0 mmol/L (21-32); Calcium, Blood 8.2 mg/dL (8.5-10.1); Chloride, Blood 101.0 mmol/L (98-108); Creatinine, Blood 0.6 mg/dL (0.40-1.00); Glucose, Blood 123.0 mg/dL (70-99); Potassium, Blood 4.0 mmol/L (3.5-5.5); Sodium, Blood 131.0 mmol/L (136-145)
--- NOTE | 2024-10-02 09:46 | NUR ---
spoke with dr. lanza. pt hr has been maintaining in the 100s-120s range, rechecked bp which is 82/54 with map of 65. reviewed all with dr. lanza. no orders at this time, directed to call back if bp continues to trend down or if hr sustains >130. pt feels well. continuing to monitor.
[2024-10-02] MEDS ORDERED: Furosemide 10 MG / ML 2ML Vial IV SCH (12:00)
--- NOTE | 2024-10-02 14:46 | NUR ---
CALL TO DR. DC, PT HR WAS TRENDING UP STARTING AT ABOUT 1300. STARTED DILT DRIP @ 5MLS/HR AGAIN AT 1416. NOW ON 10 MLS/HR. BP STABLE. DR. DC DIRECTED TO CONTINUE W/ DILT DRIP FOR TIME BEING. CONTINUING TO MONITOR.
--- NOTE | 2024-10-02 17:18 | NUR ---
SHIFT SUMMARY. HR HAS BEEN LABILE THROUGHOUT SHIFT. AT TIMES MAINTAINED IN THE 70s-90s RANGE AND AT OTHER TIMES MAINTAINED IN THE 110s-130+ RANGE. SEE PREVIOUS NOTES FOR DETAILS. AT THIS TIME, RUNNING IN THE 100s-110s RANGE WITH MOST RECENT BP 112/68 WITH MAP OF 80. PAIN HAS BEEN MOSTLY ADEQUATELY MANAGED THROUGHOUT SHIFT. ADMINISTERED PO OXYCODONE 2X AND IV DILAUDID 1X. PT MENTATION HAS SOMEWHAT FLUCTUATED, CONSISTENTLY ABLE TO ANSWER ORIENTATION QUESTIONS APPROPRIATELY BUT AT TIMES MAKES COMMENTS THAT INDICATE SOME LEVEL OF CONFUSION ALTHOUGH ONLY SPORADICALLY. SOMNOLENT THROUGHOUT MUCH OF SHIFT WELL. Q2 HOUR REPOSITIONING. CONTINUES TO RUN AFIB/AFLUTTER ON TELE. HAS MAINTAINED ADEQUATE SATURATION ON ROOM AIR THROUGHOUT SHIFT. BED LOCKED IN LOWEST POSITION. CALL LIGHT LEFT WITHIN REACH. CONTINUING TO MONITOR.
[2024-10-03] VITALS (10 sets, daily range): BP systolic 98–134; BP diastolic 56–94
[2024-10-03 04:04] LABS: BASOPHILS ABSOLUTE AUTO 0.07 K/mm3 (0.00-0.23); BASOPHILS PERCENT AUTO 1 % (0-2); EOSINOPHILS ABSOLUTE AUTO 0.43 K/mm3 (0.00-0.68); EOSINOPHILS PERCENT AUTO 4 % (0-6); Hematocrit 32.6 % (33.0-51.0); Hemoglobin 10.9 g/dL (11.5-16.0); IMMATURE GRAN ABSOLUTE AUTO 0.04 K/mm3 (0.00-0.10); IMMATURE GRAN PERCENT AUTO 0 % (0-1); LYMPHOCYTES ABSOLUTE AUTO 1.37 K/mm3 (0.84-5.20); LYMPHOCYTES PERCENT AUTO 13 % (21-46); MONOCYTES ABSOLUTE AUTO 1.17 K/mm3 (0.16-1.47); MONOCYTES PERCENT AUTO 11 % (4-13); Mean Corpuscular HGB Conc 33.4 g/dL (31.5-36.5); Mean Corpuscular Volume 94 fL (80-100); NEUTROPHILS ABSOLUTE AUTO 7.44 K/mm3 (1.96-9.15); NEUTROPHILS PERCENT AUTO 71 % (41-73); NRBC ABSOLUTE 0.00 K/mm3 (0.00-0.02); NRBC Auto 0.0 /100 WBC (0.0-0.2); Platelet Count 221 K/mm3 (150-400); RDW Coefficient Variation 13.8 % (11.7-14.2); RDW Standard Deviation 46.8 fL (35.1-46.3)
[2024-10-03 04:24] LABS: Anion Gap 8.0 mmol/L (3-11); Blood Urea Nitrogen 19.0 mg/dL (8-24); CO2, Blood 24.0 mmol/L (21-32); Calcium, Blood 8.1 mg/dL (8.5-10.1); Chloride, Blood 101.0 mmol/L (98-108); Creatinine, Blood 0.63 mg/dL (0.40-1.00); Glucose, Blood 127.0 mg/dL (70-99); Magnesium, Blood 2.0 mg/dL (1.6-2.4); Phosphorus, Blood 2.7 mg/dL (2.5-4.9); Potassium, Blood 4.2 mmol/L (3.5-5.5); Sodium, Blood 129.0 mmol/L (136-145)
--- NOTE | 2024-10-03 04:47 | NUR ---
SHIFT SUMMARY NO ACUTE EVENTS OVERNIGHT. PT REMAINS ALERT AND ORIENTED HOWEVER FORGETFUL AT TIMES THROUGHOUT NIGHT. ON TELE AFIB/AFLUTTER. AT SHIFT CHANGE PT WAS PLACED ON DILT GTT @ 5. THIS NURSE CONTINUED DRIP AND TITRATED UNTIL 2200, DRIP WAS STOPPED. PT AT THAT TIME REMAINED IN THE 90s-100s WITH STABLE BP. HR LOWERED, BP LOWERED HOWEVER MAP REMAINED >65. ASYMPTOMATIC. OTHERWISE VSS ON RA. PT SLEPT THIS NURSE PLACED 1L NC TO MAINTAIN SPO2 >92%. PT HAS FLAT AFFECT. REFUSING REPOSITIONS THROUGHOUT NIGHT. PT REPORTED 5/10 PAIN, TYLENOL GIVEN WITH GOOD EFFECT. NO FURTHER QUESTIONS OR CONCERNS AT THIS TIME. WILL CONTINUE WITH PLAN OF CARE.
[2024-10-03] MEDS ORDERED: Diltiazem HCl 180 MG Cap.CD PO SCH (09:00)
--- NOTE | 2024-10-03 17:50 | NUR ---
shift summary. shift has been unremarkable. pt aox3-4, cooperative, able to make needs known. pt was medicated once for pain this morning but otherwise has denied pain. has been able to rest comfortably throughout most of shift. vitals have been stable outside of soft bp at times, map has remained >65. has maintained adequate saturation on room air. was able to get to the commode this morning with heavy 2 person assist but was very reluctant and difficult to direct. during shift, pt was moved from room pcu 2 to pcu 19 d/t upcoming renovations on room pcu 2. pt educated on need for move and understanding of. now resting comfortably. bed locked in lowest position. call lgiht left within reach. continuing to monitor.
[2024-10-04] VITALS (9 sets, daily range): BP systolic 90–139; BP diastolic 52–86
[2024-10-04 04:54] LABS: Hematocrit 33.3 % (33.0-51.0); Hemoglobin 10.9 g/dL (11.5-16.0)
[2024-10-04 05:35] LABS: Anion Gap 8.0 mmol/L (3-11); Blood Urea Nitrogen 14.0 mg/dL (8-24); CO2, Blood 26.0 mmol/L (21-32); Calcium, Blood 8.0 mg/dL (8.5-10.1); Chloride, Blood 101.0 mmol/L (98-108); Creatinine, Blood 0.72 mg/dL (0.40-1.00); Glucose, Blood 101.0 mg/dL (70-99); Magnesium, Blood 2.1 mg/dL (1.6-2.4); Potassium, Blood 4.3 mmol/L (3.5-5.5); Sodium, Blood 131.0 mmol/L (136-145)
--- NOTE | 2024-10-04 06:10 | NUR ---
RN SHIFT NOTE NO ACUTE EVENTS OVERNIGHT. PT RECEIVED PRN 10 MG OXYCODONE TIMES 2 FOR R PELVIC PAIN AT HS AND IN AM FOR TURNING. PT RECQUIRED 2 LITERS NC OVERNIGHT FOR DESATTING CYCLICALLY WHILE SLEEPING TO LOW 80'S THEN RETURNING TO 96%. PT IN AFIB UNCONTROLLED. HEART RATE 90'S T0 120'S WITH NONSUSTAINED RATE OCCASIONALLY IN 130'S. PT [id number] 75 MG PO METOPROLOL SCHEDULED AT HS. PT ISNT ON COAGULATION AT THIS TIME. PT FINISHED THE ONE LITER FLUIDS THIS SHIFT STARTED IN DAYTIME. PT MADE IMPATIENT REMARKS TO STAFF DURING TURNS, BLOOD DRAWS, AND TURNS, AND PLACEMENT OF 02 FOR SLEEP. BED ALARM ON FOR SAFETY, CALL LITE IN REACH, BED LOW AND LOCKED. PLAN FOR PALLIATIVE CONSULT TODAY.
--- NOTE | 2024-10-04 16:40 | NUR ---
SHIFT SUMMARY. SHIFT HAS GONE WELL OVERALL. PT AOX3-4 ALTHOUGH MENTATION SOMEWHAT FLUCTUATES. HAS BEEN PLEASANT AND COOPERATIVE WITH CARE THROUGHOUT MUCH OF SHIFT. HAS BEEN ABLE TO REST COMFORTABLY FOR THE MOST PART. REMAINS VERY PAINFUL WITH MOST INSTANCES OF REPOSITIONING BUT HAS BEEN GREATLY MITIGATED BY PAIN MEDS PER EMAR. HR HAS BEEN MUCH BETTER CONTROLLED THAN PREVIOUS SHIFTS WITH THIS RN WITH RATE MOSTLY SETTLING IN THE 70s-90s RANGE. BP HAS BEEN SOFT THROUGHOUT SHIFT. SPOKE WITH DR. DC FEW TIMES THROUGHOUT THE AFTERNOON REGARDING BP. INFUSED ONE 500 ML BOLUS OF LR FOR BP MANAGEMENT. MAP HAS THUS FAR BEEN >=65. CONTINUING TO MONITOR. PT OTHERWISE DOING WELL. HAS BEEN ON BEDREST THROUGHOUT SHIFT SHE IS EXTREMELY RELUCTANT TO MOVE ANY MORE THAN IS REQUIRED FOR REPOSITIONING. BED LOCKED IN LOWEST POSITION. CALL LIGHT LEFT WTIHIN REACH. CONTINUING TO MONITOR.
[2024-10-04] MEDS ORDERED: NS 300 ML IV SCH (17:00)
--- NOTE | 2024-10-04 19:29 | NUR ---
ASSUMPTION OF CARE SHIFT REPORT AND BEDSIDE ROUNDING COMLETED. PT DENIES ANY NEEDS AT THIS TIME. HEART RATE IN 90'S. PAIN MANAGED. WILL CONTINUE TO MONITOR BPS OVERNIGHT AND CARDIAC RATE AND MAPS. PT SMILING AND PLEASANT AND ENGAGED IN CONVERSATION.
[2024-10-05] VITALS (12 sets, daily range): BP systolic 90–126; BP diastolic 56–77
[2024-10-05 06:01] LABS: Anion Gap 10.0 mmol/L (3-11); Blood Urea Nitrogen 16.0 mg/dL (8-24); CO2, Blood 25.0 mmol/L (21-32); Calcium, Blood 8.2 mg/dL (8.5-10.1); Chloride, Blood 101.0 mmol/L (98-108); Creatinine, Blood 0.61 mg/dL (0.40-1.00); Glucose, Blood 107.0 mg/dL (70-99); Magnesium, Blood 2.0 mg/dL (1.6-2.4); Phosphorus, Blood 3.4 mg/dL (2.5-4.9); Potassium, Blood 3.8 mmol/L (3.5-5.5); Sodium, Blood 132.0 mmol/L (136-145)
--- NOTE | 2024-10-05 06:40 | NUR ---
RN SHIFT REPORT PT ALERT AND ORIENTED OVERNIGHT AND MORE INVOVED IN HER CARE. PT PARTICIPATED IN PLAN OF CARE AND PLEASANT IN DEMEANOR. PT HEART RATE IN UNCONTROLLED AFIB BUT MOSTLY IN 90-LOW 100'S IN RATE WITH OCCASIONAL SPIKES IN 130'S BUT OT SUSTAINED. BP MAPS GREATER THAN 65 OVERNIGHT AND ONE TIME FLUID BOLUS OF NS 300 CC NOT GIVEN. PLAN FOR SOCIAL WORK TO FIND PLACEMENT AND PALLIATIVE CONSULTS FOR GOALS OF CARE. PT REQ O2 FOR SLEEP TO MAINTAIN SATS W BRIEF APNIC PERIODS.
[2024-10-05] MEDS ORDERED: Diltiazem HCl 180 MG Cap.CD PO SCH (09:00)
[2024-10-05] MEDS ORDERED: Magnesium Hydroxide Conc 10 ML UDC PO PRN (10:15)
--- NOTE | 2024-10-05 17:04 | NUR ---
SHIFT SUMMARY: PT ALERT, ORIENTED X2-3. ABLE TO TELL THIS RN NAME, YEAR, . UNAWARE OF LOCATION. PT IRRITABLE WITH CARE, YELLING AT STAFF. STRENGTH EQUAL BILATERALLY. BP AND HR STABLE. AFEBRILE. SPO2 >96% ON ROOM AIR. LUNG SOUNDS CLEAR. ABD SOFT, NON TENDER, BOWEL SOUNDS +. PULSES PALPABLE. NO BM THIS SHIFT. PUREWICK IN PLACE, CONNECTED LCS. PT REPOS Q2 TO MAINTAIN SKIN INTEGRITY. PHYSICAL THERAPY UNABLE TO WORK WITH PT THIS SHIFT. BED IN LOW, CALL LIGHT IN REACH, WILL REPORT TO ONCOMING RN.
[2024-10-06] VITALS (7 sets, daily range): BP systolic 96–144; BP diastolic 59–105
--- NOTE | 2024-10-06 03:51 | NUR ---
SHIFT SUMMARY PATIENT IS ALERT AND ORIENTED TO SELF, PERSON AND DATE-PATIENT CONFUSED ON SITUATION. PATIENT IRRITABLE AND YELLING OUT AT TIMES, DOES NOT USE CALL LIGHT. PATIENT REPORTS PAIN TO PELVIC REGION-MEDICATED PER EMAR. PATIENT APPEARS TO BE ABLE TO TOLERATE PAIN TO AN EXTENT WHEN MOVING WHEN IT IS DISCUSSED WITH PATIENT THE PLAN TO MOVE AND WHEN WE WILL BE MOVING PATIENT. PATIENT DID NOT SLEEP WELL THIS SHIFT. PATIENT WANTING TO WORK WITH PHYSICAL THERAPY THIS AM AT 0325-LET PATIENT KNOW THAT PHYSICAL THERAPY IS NOT IN THIS EARLY BUT THIS RN WILL RELAY TO DAYSHIFT RN PATIENTS DESIRE TO WORK WITH PHYSICAL THERAPY. EDUCATED PATIENT ON THE IMPORTANCE OF MOBILITY-PATIENT STATED "I WANT TO GO HOME TO [facility]". PATIENT IS PLEASANT, REQUIRES REASSURANCE AND COACHING WITH MOVEMENT. PATIENT HAS WICKING SYSTEM IN PLACE D/T PAIN WITH MOVEMENT, NO BM THIS SHIFT. TELEMETRY MONITORING ON AND IN PLACE; AFIB WITH RATE 80'S. BED IS LOCKED IN THE LOWEST POSITION WITH CALL LIGHT IN REACH. CARE IS ONGOING.
[2024-10-06 05:42] LABS: Anion Gap 10.0 mmol/L (3-11); Blood Urea Nitrogen 16.0 mg/dL (8-24); CO2, Blood 24.0 mmol/L (21-32); Calcium, Blood 8.2 mg/dL (8.5-10.1); Chloride, Blood 102.0 mmol/L (98-108); Creatinine, Blood 0.66 mg/dL (0.40-1.00); Glucose, Blood 112.0 mg/dL (70-99); Potassium, Blood 4.1 mmol/L (3.5-5.5); Sodium, Blood 132.0 mmol/L (136-145)
--- NOTE | 2024-10-06 09:23 | NUR ---
2 person max assistance with gait belt to transfer from bed to chair. Unable to take steps with walker; instead stand and pivot to bedside chair was best and safest. Pt had minimal pain, as she had pain medication 40 minutes prior. She is eating breakfast. Coughed with pill whole with water; no difficulty with the rest of the pills taken with applesauce.
--- NOTE | 2024-10-06 10:54 | NUR ---
Repositioned in the recliner to elevate BLE and promote pt comfort and prevention of skin breakdown. Pt states she is comfortable.
--- NOTE | 2024-10-06 12:10 | NUR ---
Max assist to stand and pivot to the BSC. Pt said she needed to have a BM.
--- NOTE | 2024-10-06 12:27 | NUR ---
Dr. Matthews rounded while the pt was on BSC. Pt did not have BM, only voided.
[2024-10-06 13:09] LABS: Hematocrit 37.9 % (33.0-51.0); Hemoglobin 12.5 g/dL (11.5-16.0); Mean Corpuscular HGB Conc 33.0 g/dL (31.5-36.5); Mean Corpuscular Volume 96 fL (80-100); NRBC ABSOLUTE 0.00 K/mm3 (0.00-0.02); NRBC Auto 0.0 /100 WBC (0.0-0.2); Platelet Count 342 K/mm3 (150-400); RDW Coefficient Variation 14.0 % (11.7-14.2); RDW Standard Deviation 48.6 fL (35.1-46.3)
--- NOTE | 2024-10-06 14:10 | NUR ---
Pt had two cardiac arrhythmia pauses while awake and sitting in chair: 3.3 sec and 2.9 seconds at 1400. She was awake and blood pressure 96/59. She is currently in atrial flutter, as she has been all day, 45-59 bpm while lying in bed after being transferred from the chair to bed by physical therapist, who had come to work with the patient coincidentally just after the pauses. Call to Dr. Matthews and message left to report the pt's condition.
--- NOTE | 2024-10-06 14:35 | NUR ---
The pt has been alert, cooperative and conversant for most of the day. She was up to the chair from about 0930 until 1400. Max assist, 2 person with gait belt to stand and pivot transfer. She is able to bear weight but she is not able to take enough steps to accomplish the transfer with her walker. She was in a lot of pain this morning, but relief with the ordered PRN narcotic. Appetite fair, but needs frequent reminders to continue eating, especially this afternoon when she seemed increasingly anxious and forgetful She is back in bed now, appears to be napping. Heart rhythm is atrial flutter, 50-60 bpm. Respirations are even and unlabored.
--- NOTE | 2024-10-06 14:50 | NUR ---
Spoke with Dr. Matthews, reporting the now 4 cardiac pauses noted by telemetry, 2-3.1 seconds long.Pt remains in atrial flutter. She is oriented to person, place, her age and reason for admission to hospital but not to season/month. She remains in bed, resting quietly.
--- NOTE | 2024-10-06 18:29 | NUR ---
Pt says that she is not hungry for dinner. Saved tray in pantry. She is sitting up, watching TV. Afib/flutter 87 bpm at rest.
[2024-10-07] MEDS ORDERED: FARXIGA10 MG PO (03:18)
[2024-10-07] MEDS ORDERED: ELIQUIS2.5 M1 PO (03:20)
[2024-10-07] MEDS ORDERED: FUROSEMIDE40 MG PO (03:20)
[2024-10-07] MEDS ORDERED: KLOR-CON M1010 MEQ PO (03:21)
[2024-10-07] MEDS ORDERED: Tambocor100 MG PO (03:24)
[2024-10-07 03:53] VITALS: BP 154/102
[2024-10-07 05:58] LABS: Albumin, Blood 3.3 g/dL (3.4-5.0); Anion Gap 8 mmol/L (3-11); Blood Urea Nitrogen 18 mg/dL (8-24); CO2, Blood 26 mmol/L (21-32); Calcium, Blood 8.5 mg/dL (8.5-10.1); Chloride, Blood 100 mmol/L (98-108); Creatinine, Blood 0.69 mg/dL (0.40-1.00); Glucose, Blood 127 mg/dL (70-99); Magnesium, Blood 2.4 mg/dL (1.6-2.4); Phosphorus, Blood 3.0 mg/dL (2.5-4.9); Potassium, Blood 4.1 mmol/L (3.5-5.5); Sodium, Blood 130 mmol/L (136-145)
--- NOTE | 2024-10-07 06:11 | NUR ---
SHIFT SUMMARY PATIENT ALERT AND ORIENTED X2. CONFUSED WITH DELUSIONAL THOUGHT PROCESS OVERNIGHT. MEDICATED PER EMAR FOR PAIN. ON ROOM AIR WITH SPO2 >90%. VITAL SIGNS STABLE. WILL CONTINUE TO MONITOR. CALL LIGHT WITHIN REACH.
--- NOTE | 2024-10-07 07:53 | NUR ---
ASSUMPTION NOTE: THIS RN TO ASSUME CARE OF PT. PATIENT IS IN BED AND WANTING TO GET TO THE CHAIR FOR BREAKFAST. PT SAT UP, VITAL SIGNS TAKEN & PATIENT STABLE. DENIED ANY CHEST PAIN/PRESSURE. HAS CALL LIGHT WITHIN REACH & STATING NOTHING ELSE IS NEEDED AT THIS TIME.
[2024-10-07 07:54] VITALS: BP 140/98
--- NOTE | 2024-10-07 08:54 | NUR ---
PT WOKRED WITH PATIENT: PHYSICAL THERAPY WORKED WITH PT AND WAS ABLE TO TRANSFER TO CHAIR. PT WAS VERY ANXIOUS AND HER HEART RATE SHOT UP INTO 130'S. PT WAS FORGETFUL AND NOT ABLE TO TELL THIS RN WHERE SHE WAS AT OR THE SITUATION. PT IS CURRENTLY IN THE CHAIR HAS CALL LIGHT WITHIN REACH AND EATING BREAKFAST AT THIS TIME.
[2024-10-07 11:31] VITALS: BP 92/63
--- NOTE | 2024-10-07 13:08 | NUR ---
ROUNDED: ROUNDED AND PATIENT WOULD TALK WITH HER BUT NOT OPENING HER EYES. MD ASKED FOR MORE INFORMATION ABOUT PT'S MED REC THIS RN MENTIONED SHE TAKES FLECCANIDE AT HOME BUT IS NOT BEING GIVEN IT HERE. RN TO CALL PHARMACY. STATED MAYBE CUT BACK ON HER PAIN MEDICATION SHE IS VERY SLEEPY SINCE ADMINISTRATION OF IT.
[2024-10-07 15:03] VITALS: BP 121/107
--- NOTE | 2024-10-07 15:06 | NUR ---
MD CONTACTED: THIS RN CALLED MD REGARDING THE [facility] ASKING FOR A MATTSON AND OTHER QUESTIONS. MD DENIED REQUEST FOR MATTSON OR ANTI ANXIETY MEDS THIS RN MENTIONED THEY MAY BE BENEFICAL FOR PT WHEN TRANSFFERING OR GETTING TO CHAIR. MD STATED SHE WOULD LIKE TO CUT BACK ON PAIN MEDS AND NOT ADD ANYTHING SHE WAS PRETTY OUT OF IT AFTER ADMINISTRATION OF PAIN MEDICATION.
--- NOTE | 2024-10-07 17:00 | NUR ---
SHIFT SUMMARY: pt is alert and oriented x2-3, not able to state she is in the hospital but aware she is in [place]. pt is satting >92% on room air. On tele showing afib/flutter with rate between 60-130 at times. Did tach up and sustain 130 s after working with physical therapy this morning and was given prn dose of dilt per emar heart rate over 110. pt friend came to my bedside but pt was very sleepy. Pt and family are aware that pt was accepted at an adult foster home and pending discharge will be going to one of the facilities available. pt is in the chair awaiting dinner, has call light within reach & stating nothing else is needed at this time.
[2024-10-07 20:28] VITALS: BP 108/81
[2024-10-07 23:25] VITALS: BP 115/79
[2024-10-08] VITALS (15 sets, daily range): BP systolic 119–146; BP diastolic 69–116
--- NOTE | 2024-10-08 03:33 | NUR ---
PHYSICIAN COMMUNICATION MEDICATED PATIENT FOR HEART RATE GREATER THAN 110 AROUND 0140, HEART RATE CONTINUES IN 120'S-130'S. EMPLOYMENT PROGRAM REPRESENTATIVE RESIDENT NOTIFIED.
[2024-10-08 07:02] LABS: Albumin, Blood 3.3 g/dL (3.4-5.0); Anion Gap 10 mmol/L (3-11); Blood Urea Nitrogen 20 mg/dL (8-24); CO2, Blood 24 mmol/L (21-32); Calcium, Blood 8.6 mg/dL (8.5-10.1); Chloride, Blood 99 mmol/L (98-108); Creatinine, Blood 0.65 mg/dL (0.40-1.00); Glucose, Blood 125 mg/dL (70-99); Phosphorus, Blood 3.6 mg/dL (2.5-4.9); Potassium, Blood 4.2 mmol/L (3.5-5.5); Sodium, Blood 129 mmol/L (136-145)
--- NOTE | 2024-10-08 07:12 | NUR ---
SHIFT SUMMARY PATIENT ALERT AND ORIENTED X4 OVERNIGHT. MEDICATED WITH A SECOND DOSE OF PO CARDIZEM PER DR TUBBS THIS MORNING WITH NO EFFECT ON HEART RATE SO FAR. WILL CONTINUE TO MONITOR. CALL LIGHT WITHIN REACH.
--- NOTE | 2024-10-08 07:18 | NUR ---
CALL TO DR. GOMEZ. PT HAS BEEN MAINTAINING AFIB IN THE 140s RANGE SINCE THIS RN ARRIVAL @ ~0700. REVIEWING TREND, PT HAS BEEN SOMEWHAT CONSISTENTLY MAINTAINING IN THIS HR RANGE WITH OCCASIONAL DIPS SINCE ABOUT ~0130. NOTIFIED THAT PT OTHERWISE FEELING FINE RIGHT NOW, RESTING COMFORTABLY. AFTER DISCUSSING SITUATION A BIT MORE WITH DR. GOMEZ, SHE INFORMED SHE WOULD REVIEW CHART AND PUT IN ORDERS APPROPRIATE. CONTINUING TO MONITOR.
[2024-10-08] MEDS ORDERED: NS 1,000 ML IV SCH (07:25)
[2024-10-08] MEDS ORDERED: Polyethylene Glycol 3350 17 gm PO SCH (10:05)
[2024-10-08] MEDS ORDERED: Amiodarone HCl 450 MG in NS 250 ML IV SCH (13:55)
--- NOTE | 2024-10-08 17:57 | NUR ---
SHIFT SUMMARY. SHIFT HAS GONE WELL. PT AOX3-4, PLEASANT, COOPERATIVE, ABLE TO MAKE NEEDS KNOWN. HAS BEEN RUNNING AFIB/AFLUTTER THROUGHOUT SHIFT WITH RATE ANYWHERE BETWEEN 70s-140s. WAS 140s THIS MORNING ON SHIFT ONSET, SOME TIME AFTER PO METOPROLOL ADMINISTRATION THIS MORNING PER EMAR RATE SETTLED MORE IN THE 70s-90s RANGE. THROUGHOUT THE COURSE OF THE DAY SLOWLY STARTED TO TREND BACK UP. DR. FREEMAN ORDERED AMIODARONE DRIP THIS AFTERNOON WHICH CONTINUES TO RUN @ 33.3 MLS/HR. HR 100s AT THIS TIME. PT WAS UNABLE TO VOID THIS MORNING, BLADDER SCAN REVEALED VOLUME OF >600mls. STRAIGHT CATH PERFORMED AND 650 WAS DRAINED. HAS BEEN UNABLE TO VOID AGAIN SINCE, BLADDER SCANNED AGAIN @ ~1630 WHICH REVEALED BLADDER VOLUME OF 340 mls. CONTINUING TO MONITOR FOR TIME BEING. SHIFT OTHERWISE UNREMARKABLE. VITALS STABLE. PAIN ADEQUATELY MANAGED VIA EMAR. BED LOCKED IN LOWEST POSITION. CALL LGT LEFT WITHIN REACH. CONTINUING TO MONITOR.
[2024-10-09 03:59] VITALS: BP 140/95
--- NOTE | 2024-10-09 05:45 | NUR ---
SHIFT SUMMARY PT IS A&O X4, ABLE TO MAKE NEEDS KNOWN, MOVING EXTREMITIES WITH PURPOSE, REPOSITIONING Q2 BY MEDICAL STAFF, OBEYS COMMANDS, PT OCCATIONALY MAKING OFF COMMENTS LIKE WHERE AM I EVEN AFTER SHE STATES SHE IS AT [facility]. SPO2 GREATER THAN 90% RA, LUNGS SOUND CLEAR T/O WITH DIMINISHED BASES, PT DENIES SOB, NO SIGNS OF RESPIRATORY DISTRESS NOTED. CONTINUOUS TELE MONITORING, SINUS 100-120 S, PT DENIES CHEST P/P T/O THIS SHIFT, BP STABLE WITH MAP GREATER THAN 65, PULSES PRESENT T/O. BOWEL TONES PRESENT IN ALL 4Q, PT DENIES FEELINGS OF NAUSAE OR CONSTIPATION, BOWEL CARE MEDICATIONED PROVIDED PER ORDERS. PT BLADDER SCANNED/ REQUIRED STRAIGHT CATH X 1 THIS SHIFT, URINE CALLI IN COLOR, PUREWICK IN PLACED CONNECTED TO LOW CONTINUOUS SUCTION. PT DENIES PAIN BUT DOES CALL OUT AND GRIMACE WITH REPOSITIONING. BED LOWEST POSITION, CALL LIGHT IN REACH, AWAITING TO GIVE REPORT TO ONCOMING RN.
--- NOTE | 2024-10-09 07:05 | NUR ---
ASSUMPITION NOTE: THIS RN TO ASSUME CARE OF PT. PATIENT IS SLEEPINGIN BED,EASILY AROUSABLE WHEN BEING TALKED TO. PATIENT VITAL SIGNS STABLE, HAS CALL LIGHT WITHIN REACH & BED IN LOWEST POSITION. PT STATING NOTHGIN ELSE IS NEEDED AT THIS TIME.
[2024-10-09 07:07] VITALS: BP 139/101
[2024-10-09 11:30] VITALS: BP 147/108
--- NOTE | 2024-10-09 13:39 | NUR ---
ARRIVAL NOTE: PATIENT ARRIVES TO UNIT AND TRANSFFERED TO OUR BED VIA SLIDE SHEET. PT IS ON 4 LITERS VIA NASAL CANNULA,ORIENTED TO ROOM. CALL LIGHT WITIN REACH & BED IN LOWEST POSITION
[2024-10-09 16:23] VITALS: BP 138/109
--- NOTE | 2024-10-09 17:16 | NUR ---
SHIFT SUMMARY: PATIENT IS ALERT AND ORIENTED X4 & COOPERATIVE WITH HER CARE. PT IS ON TELE SHOWING AFIB/FLUTTER WITH RATE 105-110 OCCASINALLY. PT SATTING >92% ON ROOM AIR. HAD FRIENDS COME TO [facility] TO VISIT THROUGHOUT SHIFT. PT WORKED WIHT PHYSICAL THERAPY TODAY JUST DOING EXERCISES AT THE BEDSIDE DUE TO NOT WANTING TO PARTICIPATE MUCH. PT WAS ABLE TO HAVE A BOWEL MOVEMENT TODAY AFTER BEING GIVEN A FLEET ENEMA. PT WAS ABLE TO VOID ON HER OWN A LITTLE. WILL BE BLADDER SCANNING PRIOR TO DINNER SHE WAS STRAIGHT CATH'D THE NIGHT PRIOR. PT WAS MEDICATED PER EMAR FOR PAIN THROUGHOUT THE SHIFT. PT WAS ABLE TO TOLERATE GETTING INTO THE CHAIR FOR MEALS TODAY. PLAN WILL BE TO DISCHARGE THIS WEEKEND TO [facility]. PT HAS CALL LIGHT WITHIN REACH, BED IN LOWEST POSITION & AWAITNG FOR DINNER TO ARRIVE.
[2024-10-09 20:21] VITALS: BP 105/72
[2024-10-09 23:07] VITALS: BP 120/76
[2024-10-10 03:09] VITALS: BP 127/91
[2024-10-10 04:58] LABS: Anion Gap 7.0 mmol/L (3-11); Blood Urea Nitrogen 17.0 mg/dL (8-24); CO2, Blood 25.0 mmol/L (21-32); Calcium, Blood 8.1 mg/dL (8.5-10.1); Chloride, Blood 103.0 mmol/L (98-108); Creatinine, Blood 0.62 mg/dL (0.40-1.00); Glucose, Blood 111.0 mg/dL (70-99); Potassium, Blood 4.1 mmol/L (3.5-5.5); Sodium, Blood 131.0 mmol/L (136-145)
--- NOTE | 2024-10-10 05:59 | NUR ---
SHIFT SUMMARY PT IS A&O X4, ABLE TO MAKE NEEDS KNOWN, MOVING EXTREMITIES WITH PURPOSE, REPOSITIONING Q2 BY MEDICAL STAFF, OBEYS COMMANDS. SPO2 GREATER THAN 90% RA, LUNGS SOUND CLEAR T/O WITH DIMINISHED BASES, PT DENIES SOB, NO SIGNS OF RESPIRATORY DISTRESS NOTED. CONTINUOUS TELE MONITORING, SINUS 100-120 S, PT DENIES CHEST P/P T/O THIS SHIFT, BP STABLE WITH MAP GREATER THAN 65, PULSES PRESENT T/O. BOWEL TONES PRESENT IN ALL 4Q, PT DENIES FEELINGS OF NAUSAE OR CONSTIPATION, BOWEL CARE MEDICATIONED PROVIDED PER ORDERS, PT HAVING INCONTINET EPIOSODES. PT HAVING INCONTINENT EPISODES, PUREWICK IN PLACE CONNECTED TO LOW CONTINUOUS SUCTION. PT DENIES PAIN BUT DOES CALL OUT AND GRIMACE WITH REPOSITIONING. BED LOWEST POSITION, CALL LIGHT IN REACH, AWAITING TO GIVE REPORT TO ONCOMING RN.
--- NOTE | 2024-10-10 06:58 | NUR ---
COLIN NOTE: THIS RN TO ASSUME CARE OF PATIENT. PATIENT IS AWAKE IN BED WATCHING TV, STATING SHE'D LIKE TO BE CHANGED AND GET UP FOR BREAKFAST. VITAL SIGNS TAKEN & PT STABLE. HAS CALL LIGHT WITHIN REACH AND WAITING TO GET UP FOR BREAKFAST.
[2024-10-10 07:15] VITALS: BP 150/115
[2024-10-10 11:13] VITALS: BP 96/74
[2024-10-10] MEDS ORDERED: Acetaminophen650 M1 PO (14:22)
[2024-10-10] MEDS ORDERED: ACET500 PO (14:23)
[2024-10-10] MEDS ORDERED: Amiodarone HCl200 MG PO ×2 (14:24→14:28)
[2024-10-10] MEDS ORDERED: AMIODARONE HCL400 M2 PO (14:29)
[2024-10-10] MEDS ORDERED: DOCU100 PO (14:30)
[2024-10-10] MEDS ORDERED: ONDA4 PO (14:31)
[2024-10-10] MEDS ORDERED: DULCOLAX400 MG/5 M PO (14:31)
[2024-10-10] MEDS ORDERED: SENNA LAXATIVE8.6 MG PO (14:32)
[2024-10-10] MEDS ORDERED: MIRALAX17 GM PO (14:32)
[2024-10-10] MEDS ORDERED: TRAM50 PO (14:34)
--- NOTE | 2024-10-10 15:06 | NUR ---
DISCHARGE NOTE: PATIENT IS GOING TO THE [facility]ICAL [facility] AND TRANSPORT CAME AND PT WAS TAKEN VIA WHEELCHAIR. PATEINT IS ALERT AND ORIENTED X4 & WILLING AND EXCITED TO GO TO REHAB. TRANSPORT TOOK PATIENTS PACKET WITH THEM.
== END 2024-10-10 15:04 | DRG 536 ==
LOC: ER 07:57 → MEDS 07:58 → PCU 10-01 14:51 → MEDS 10-01 14:51 → PCU 10-02 04:56
PROVIDERS: Internal Medicine; ADMIT Student in an Organized Health Care Education/Training Program
PROC: 30283B1 Transfusion of Nonautologous 4-Factor Prothrombin Complex Concentrate into Vein, Percutaneous Approach (ICD-10-PCS; principal; 2024-09-30)
DX: S32.511A Fracture of superior rim of right pubis, initial encounter for closed fracture (principal); E87.1 Hypo-osmolality and hyponatremia; I50.32 Chronic diastolic (congestive) heart failure; I48.92 Unspecified atrial flutter; S32.591A Other specified fracture of right pubis, initial encounter for closed fracture; I48.0 Paroxysmal atrial fibrillation; I11.0 Hypertensive heart disease with heart failure; Z66 Do not resuscitate; E03.9 Hypothyroidism, unspecified; E86.0 Dehydration; K59.00 Constipation, unspecified; R33.8 Other retention of urine; W01.0XXA Fall on same level from slipping, tripping and stumbling without subsequent striking against object, initial encounter; Y92.099 Unspecified place in other non-institutional residence as the place of occurrence of the external cause; Z88.2 Allergy status to sulfonamides; Z88.6 Allergy status to analgesic agent; Z88.0 Allergy status to penicillin; Z88.8 Allergy status to other drugs, medicaments and biological substances; Z79.01 Long term (current) use of anticoagulants; Z79.890 Hormone replacement therapy; Z86.73 Personal history of transient ischemic attack (TIA), and cerebral infarction without residual deficits; Z87.891 Personal history of nicotine dependence; Z79.84 Long term (current) use of oral hypoglycemic drugs
CPT/HCPCS: 36415; 51701; 70450; 72191; 72192; 73110; 73502; 73552; 80048; 80069; 83735; 84100; 84439; 84443; 84481; 85014; 85018; 85025; 85027; 93005; 93010; 94762; 96374; 96375; 96376; 97110-CQ; 97112; 97162; 97530; 97530-CQ; 99285-25; A6590; A9270; G0378; J0282; J1171; J1938; J3010; J7030; J7050; J7120; J7168; Q9967

== ENCOUNTER → 2024-12-23 | Outpatient (CLI) | payer MEDICARE, OTHER ==
[~2024-12-23] MED LIST changes: +ACET500 PO; +AMIODARONE HCL400 M2 PO; +Acetaminophen650 M1 PO; +Amiodarone HCl200 MG PO; +DOCU100 PO; +DULCOLAX400 MG/5 M PO; +ELIQUIS2.5 M1 PO; +FARXIGA10 MG PO; +FUROSEMIDE40 MG PO; +KLOR-CON M1010 MEQ PO; +MIRALAX17 GM PO; +ONDA4 PO; +SENNA LAXATIVE8.6 MG PO; +TRAM50 PO; +Tambocor100 MG PO
[2024-12-23 16:40] LABS: Source, Urine Clean Catch
[2024-12-23 16:55] LABS: Bilirubin, Urine Neg (Neg); Color, Urine Yellow (P-Yellow); Glucose Qualitative, Urine 4+ (Neg); Ketones, Urine Neg (Neg); Leukocyte Esterase, Urine 3+ (Neg); Protein, Urine 2+ (Neg); Specific Gravity, Urine 1.010 (1.003-1.022); Urobilinogen, Urine NORM (Normal)
[2024-12-23 17:07] LABS: White Blood Cells, Urine TNTC /hpf (0-5)
== END ==
LOC: LAB 16:38 → LAB SHORT 16:38
PROVIDERS: Internal Medicine
DX: N39.0 Urinary tract infection, site not specified (principal); R73.9 Hyperglycemia, unspecified; E03.9 Hypothyroidism, unspecified; R41.82 Altered mental status, unspecified; Z79.899 Other long term (current) drug therapy
CPT/HCPCS: 81001; 87086

== ENCOUNTER 2025-02-09 09:06 | Day surgery (SDC) | payer MEDICARE, OTHER ==
[2025-02-09] MEDS ORDERED: Lidocaine HCl 4% Cream 5 GM ONE (13:15)
== END 2025-02-09 22:46 | disposition home or self-care (01) ==
LOC: WOUND 09:06
DX: S81.801A Unspecified open wound, right lower leg, initial encounter (principal); X58.XXXD Exposure to other specified factors, subsequent encounter; L89.892 Pressure ulcer of other site, stage 2; I11.0 Hypertensive heart disease with heart failure; I50.32 Chronic diastolic (congestive) heart failure; I25.10 Atherosclerotic heart disease of native coronary artery without angina pectoris; Z88.1 Allergy status to other antibiotic agents; Z88.8 Allergy status to other drugs, medicaments and biological substances; Z87.891 Personal history of nicotine dependence
CPT/HCPCS: A6196; A9270; G0463

== ENCOUNTER 2025-02-16 01:12 | Day surgery (SDC) | payer MEDICARE, OTHER ==
[2025-02-16] MEDS ORDERED: Lidocaine HCl 4% Cream 5 GM ONE (11:25)
== END 2025-02-16 22:49 | disposition home or self-care (01) ==
LOC: WOUND 01:12
DX: L89.892 Pressure ulcer of other site, stage 2 (principal); L97.812 Non-pressure chronic ulcer of other part of right lower leg with fat layer exposed; I11.0 Hypertensive heart disease with heart failure; I50.32 Chronic diastolic (congestive) heart failure; I87.2 Venous insufficiency (chronic) (peripheral)
CPT/HCPCS: A6196; A9270

== ENCOUNTER 2025-03-02 02:30 | Day surgery (SDC) | payer MEDICARE, OTHER ==
[2025-03-02] MEDS ORDERED: Lidocaine HCl 4% Cream 5 GM ONE (11:01)
== END 2025-03-02 23:26 | disposition home or self-care (01) ==
LOC: WOUND 02:30
DX: L97.812 Non-pressure chronic ulcer of other part of right lower leg with fat layer exposed (principal); L89.892 Pressure ulcer of other site, stage 2; I87.2 Venous insufficiency (chronic) (peripheral); I50.32 Chronic diastolic (congestive) heart failure; I11.0 Hypertensive heart disease with heart failure; I25.10 Atherosclerotic heart disease of native coronary artery without angina pectoris
CPT/HCPCS: A6196; A9270

== ENCOUNTER 2025-03-11 04:16 | Day surgery (SDC) | payer MEDICARE, OTHER ==
[2025-03-11] MEDS ORDERED: Lidocaine HCl 4% Cream 5 GM ONE (10:32)
== END 2025-03-11 23:00 | disposition home or self-care (01) ==
LOC: WOUND 04:16
DX: L97.212 Non-pressure chronic ulcer of right calf with fat layer exposed (principal); L97.221 Non-pressure chronic ulcer of left calf limited to breakdown of skin; L89.892 Pressure ulcer of other site, stage 2; S81.812D Laceration without foreign body, left lower leg, subsequent encounter; X58.XXXD Exposure to other specified factors, subsequent encounter; I87.2 Venous insufficiency (chronic) (peripheral); I50.32 Chronic diastolic (congestive) heart failure
CPT/HCPCS: A6196; A9270

== ENCOUNTER → 2025-03-23 | Outpatient (CLI) | payer MEDICARE, OTHER ==
[2025-03-23 14:16] LABS: Source, Urine Voided
[2025-03-23 14:23] LABS: Bilirubin, Urine Neg (Neg); Color, Urine Yellow (P-Yellow); Glucose Qualitative, Urine 3+ (Normal); Ketones, Urine Neg (Neg); Leukocyte Esterase, Urine 2+ (Neg); Protein, Urine Neg (Neg); Specific Gravity, Urine 1.015 (1.003-1.022); Urobilinogen, Urine NORM (Normal)
[2025-03-23 14:30] LABS: White Blood Cells, Urine 25-50 /hpf (0-5); Yeast/Fungi Urine Mod /hpf
== END | disposition home or self-care (01) ==
LOC: LAB 14:14 → LAB SHORT 14:14
PROVIDERS: Student in an Organized Health Care Education/Training Program
DX: R30.0 Dysuria (principal)
CPT/HCPCS: 81001; 87086